=== PATIENT | female | born 1970 | race American Indian/Alaskan Native ===

== ENCOUNTER 2022-04-24 07:01 | Emergency (ER) | payer OTHER ==
[2022-04-24 07:19] VITALS: BP 171/118
[2022-04-24] MEDS ORDERED: KETOROLAC 30 MG/1 ML INJ IM ONE (08:54)
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
--- NOTE | 2022-04-24 09:38 | XRay Report ---
CERVICAL SPINE 3 VIEWS INDICATION: Neck pain. COMPARISON: None. IMPRESSION: Normal alignment. There is moderate to severe multilevel degenerative disc disease whic h is most pronounced at C3-4, C4-5, C5-6 and C6-7. There is mild diffuse facet arthropathy without hy pertrophy changes. No acute osseous or soft tissue abnormality. LUMBOSACRAL SPINE 3 VIEWS INDICATION: back pain. COMPARISON: None. IMPRESSION: There is straightening of the normal lordosis which could be secondary to positioning or spasm. No subluxation. Moderate discogenic DJD is identified at L4-5 and L5-S1. There is moderate d iffuse facet arthropathy. The SI joints are unremarkable. No acute osseous or soft tissue abnormalit y. Signer Name: William Monge Jr, MD Signed: 04/24/2022 9:34 AM Workstation Name: [id number]
== END 2022-04-24 10:30 | disposition home or self-care (01) ==
LOC: ED 07:01
DX: M54.9 Dorsalgia, unspecified (principal); M54.2 Cervicalgia; V89.2XXA Person injured in unspecified motor-vehicle accident, traffic, initial encounter; Y93.89 Activity, other specified; Y92.89 Other specified places as the place of occurrence of the external cause; Y99.8 Other external cause status
CPT/HCPCS: 72040; 72100; 96372; 99283; J1885